=== PATIENT | female | born 1945 | race Caucasian/White ===

== ENCOUNTER 2017-09-06 11:05 | Emergency (ER) | payer MEDICARE ==
[2015-06-28 10:58] VITALS: Ht 167.6 cm; Wt 113.4 kg
[~2017-09-06] VITALS: Ht 167.6 cm; Wt 113.4 kg
--- NOTE | 2017-09-06 11:25 | ER Report ---
History and Physical Time Seen By MD: 11:10 Hx. of Stated Complaint: PATIENT FELL AT [facility] HITTING HER HEAD AFTER SEEING THE DOCTOR HPI/DUANE CHIEF COMPLAINT: Head injury HISTORY OF PRESENT ILLNESS: Patient is a 72-year-old female who presents the ED with complaint of a head injury that occurred about 10 minutes ago. She states that she had a visit with her primary care provider, Stephanie Trotter NP, and on her way out from the clinic she was scooting backwards in her chair and got caught on the end of the rug and her chair fell backwards with her and she hit the back of her head. She states that she has a lump on the back of her head but has not noted any bleeding. She believes that she did lose consciousness for a couple seconds. She denies any nausea or vomiting. She has not noted any vision changes, numbness, tingling. She has noted a slight headache. She does take Coumadin for atrial fibrillation. She states that she did not take her dose today. She also has not taken couple of her other medications today as of yet. She states that she has noted some slight neck pain as well. Patient denies any fever. She states that she did have some labwork completed today. REVIEW OF SYSTEMS: Constitutional: No fever, no chills. Eyes: No discharge. ENT: No sore throat. Cardiovascular: No chest pain, no palpitations. Respiratory: No cough, no shortness of breath. Gastrointestinal: No abdominal pain, no vomiting. Musculoskeletal: No back pain. Skin: No rashes. Neurological: See history of present illness. Allergies: Coded Allergies: MADAN Inhibitors (Unverified Allergy, Severe, OVERALL DRYNESS OF MOUTH, THROAT, SEVERE COUGH, 03/13/16) Msfewbb-Pdh-Hmf Reductase Inhibitor (Unverified Allergy, Severe, MENTAL STATUS CHANGES, FATIGUE, LETHARGY, 03/13/16) Penicillins (Verified Allergy, Intermediate, ITCHING, 03/13/16) duloxetine (Verified Allergy, Intermediate, Hallucinations and Chest Tightness, 07/28/17) isradipine (Verified Allergy, Intermediate, INCREASED BODY HEAT AND SWEATING, 03/13/16) Home Meds Active Scripts Gabapentin (GABAPENTIN) 300 Mg Capsule, 1-2 CAP PO BID, #180 CAPSULE 5 Refills Prov:STEPHANIE MISHRA DNP, BUSINESS PROCESS CONSULTANT-BC 08/25/17 Methimazole (METHIMAZOLE) 5 Mg Tablet, 1 TAB PO DAILY, #30 TAB 6 Refills Prov:STEPHANIE MISHRA DNP [facility] 08/02/17 Albuterol Sulfate 90 Mcg/Act (PROAIR HFA 90 MCG/ACT) 8.5 Gm Hfa.aer.ad, 1-2 PUFF IH 3-4XD, #1 INHALER 2 Refills Prov:STEPHANIE MISHRA DNP [facility] 07/20/17 Fluticasone Prop 50 Mcg Ns (FLONASE 50 MCG NS) 16 Gm [place].susp, 1 SPRAY NS BID for 10 Days, #1 BOT 0 Refills Prov:STEPHANIE MISHRA DNP [facility] 07/20/17 Guaifenesin (MUCINEX) 600 Mg Tablet.er, 1 TAB PO BID Y for Sinus Infection, #20 TAB 0 Refills Prov:STEPHANIE MISHRA DNP [facility] 07/20/17 Ezetimibe (ZETIA) 10 Mg Tablet, 10 MG PO QDAY, #90 TAB 3 Refills Prov:JC HERNANDES MD 07/20/17 Warfarin Sodium (COUMADIN) 5 Mg Tablet, 5 MG PO QDAY, #25 TAB 6 Refills TAKES 1/2 TABLET ON WEDNESDAY AND WEDNESDAY Prov:JC HERNANDES MD 03/12/17 Insulin Glargine,Hum.rec.anlog (LANTUS SOLOSTAR) 100 Unit/1 Ml Insuln.pen, 40 UNIT SQ QDAY, #1 BOX 4 Refills INJECT 23 UNITS IN THE MORNING AND 17 UNITS IN THE EVENING. Prov:JC HERNANDES MD 03/12/17 Metformin Hcl (METFORMIN HCL) 1,000 Mg Tablet, 1 TAB PO BID, #180 TAB 3 Refills Prov:JC HERNANDES MD 11/12/16 [place], Insulin Disposable (NOVOFINE) 1 Each Dis.needle, 1 EACH MC DIRECTED , #100 12 Refills [place] 2 pen tips daily with Lantus Novofine 30G needles Prov:JC HERNANDES MD 11/02/16 Furosemide (FUROSEMIDE) 40 Mg Tablet, 1 TAB PO BID, #180 TAB 2 Refills Prov:JC HERNANDES MD 10/08/16 Diltiazem Hcl (DILTIAZEM 24HR CD) 240 Mg Cap.er.24h, 1 CAP PO BID, #180 CAP 4 Refills Prov:JC HERNANDES MD 07/07/16 Losartan Potassium (LOSARTAN POTASSIUM) 50 Mg Tablet, 1 TAB PO QDAY, #90 TAB 4 Refills Prov:JC HERNANDES MD 06/05/16 Blood Sugar Diagnostic (ACCU-CHEK JOHNNY PLUS) 1 Each Strip, 1 EACH MC QDAY, # 100 STRIP 3 Refills use once a day to test blood sugar Prov:JC HERNANDES MD 05/12/16 Blood Sugar Diagnostic (ACCU-CHEK JOHNNY PLUS) 1 Each Strip, 1 EACH MC QDAY, #50 STRIP 5 Refills Prov:JC HERNANDES MD 05/12/16 NYSTATIN 603684 UNT/ML Topical Cream (NYSTATIN 324012 UNT/ML Topical Cream) 15 Gm Cream..g., 15 GM TP BID, #30 G 2 Refills Prov:JC HERNANDES MD 03/11/16 Reported Medications Mu-Vits-Min Th/Lycopene/Lutein (CENTRUM SILVER TABLET) 1 Each Tablet, 1 TAB PO QDAY 07/02/17 Magnesium Oxide (MAGNESIUM) 250 Mg Tablet, 1 TAB PO QHS 05/02/15 Cholecalciferol (Vitamin D3) (VITAMIN D) 2,000 Unit Capsule, 2000 UNIT PO QDAY, CAPSULE 05/08/14 Discontinued Scripts Duloxetine Hcl (CYMBALTA) 60 Mg Capsule.dr, 1 CAP PO QDAY, #90 CAP 0 Refills Prov:TSEPHANIE MISHRA DNP, FNP-ADEEL 07/26/17 Sulfamethoxazole/Trimet 800-160 Mg Tab (BACTRIM DS TABLET) 1 Each Tablet, 1 TAB PO Q12H for 7 Days, #14 TAB 0 Refills Prov:STEPHANIE MISHRA DNP, FNP-ADEEL 07/20/17 Guaifenesin/Codeine Phosphate (Codeine-Guaifen 10-100 mg/5 ml) 120 Ml Liquid, 1- 2 TSP PO Q6H Y for COUGH, #120 ML 0 Refills Prov:STEPHANIE MISHRA DNP, FNP-ADEEL 07/13/17 Reviewed Nurses Notes: Yes Old Medical Records Reviewed: Yes Hx Smoking: No Smoking Status: Never Smoker Exposure to Second Hand Smoke?: No Hx Substance Use Disorder: No Hx Alcohol Use: Yes Constitutional Vital Sign - Last 24 Hours 09/06/17 09/06/17 09/06/17 09/06/17 11:11 11:11 12:00 12:05 Temp 98.9 Pulse 102 105 103 106 Resp 18 B/P (MAP) 146/100 (115) 146/100 132/110 (117) Pulse Ox 96 93 96 94 O2 Delivery Nasal Cannula Physical Exam General Appearance: The patient is alert, has no immediate need for airway protection and no signs of toxicity. Patient appears to be in no acute distress. Eyes: Pupils equal and round no pallor or injection. EOMs are full bilaterally. ENT, Mouth: Mucous membranes are moist. Respiratory: There are no retractions, lungs are clear to auscultation. Cardiovascular: Regular rate and rhythm. Gastrointestinal: Abdomen is soft and non tender, no masses, bowel sounds normal. Neurological: Cranial nerves II-12 intact. Normal Romberg. Normal finger to nose test bilaterally. Skin: There is a small 2 cm diameter scalp hematoma noted on the occipital scalp. No bleeding or laceration present. Musculoskeletal: Neck is supple non tender. Extremities are nontender, nonswollen and have full range of motion. DIFFERENTIAL DIAGNOSIS: After history and physical exam differential diagnosis was considered for head injury including but not limited to concussion, skull fracture, intraparenchymal contusion, subarachnoid, subdural and epidural hematoma. Medical Decision Making EKG/Imaging Imaging CT Head and C-Spine: IMPRESSION: 1. The head shows senescent changes without acute abnormality. 2. No acute osseous or acute alignment abnormality of the cervical spine. Mild degenerative changes. 3. Left thyroid hypodense lesion measuring 3.5 cm. A follow-up ultrasound can further evaluate. Report Dictated By: Rashid Dean at 09/06/2017 12:01 PM Report E-Signed By: Rashid Dean at 09/06/2017 12:10 PM ED Course/Re-evaluation ED Course Will obtain CT of the head and neck. She did have her INR checked today and it was at 2.19. 09/06/2017 12:20:16 pm - discussed CT of the head and C-spine results. There was no acute intracranial abnormality or fracture noted on his C-spine. Likely patient has neck strain with her scalp hematoma. Did discuss with her the finding of a thyroid lesion which should be further evaluated by ultrasound through her primary care provider. Decision to Disposition Date: Sep 06, 2017 Decision to Disposition Time: 12:20 Depart Departure Latest Vital Signs Vital Signs Date Time Temp Pulse Resp B/P (MAP) Pulse Ox O2 Delivery O2 Flow Rate FiO2 09/06/17 12:05 106 94 09/06/17 12:00 132/110 (117) 09/06/17 11:11 98.9 18 Nasal Cannula Impression: Primary Impression: Head injury Additional Impressions: Neck strain Thyroid nodule Condition: Improved Disposition: HOME OR SELF-CARE Referrals: STEPHANIE MISHRA DNP, BUSINESS PROCESS CONSULTANT-BC (PCP) Patient Instructions: Acute Neck Pain (ED), Head Injury (ED), Thyroid Nodules ( ED) Additional Instructions: Stay well-hydrated. Follow-up with primary care provider in 2-3 days regarding her injuries and the thyroid nodule noted on CT. If having any worsening or concerning symptoms may return to the emergency department. Problem Qualifiers Primary Impression: Head injury Encounter type: initial encounter Qualified Codes: S09.90XA - Unspecified injury of head, initial encounter Additional Impressions: Neck strain Encounter type: initial encounter Qualified Codes: S16.1XXA - Strain of muscle, fascia and tendon at neck level, initial encounter CAPO [place] PA-C Sep 06, 2017 11:25
[2017-09-06] MEDS ORDERED: ACETAMINOPHEN 325 MG TAB PO ONE (11:55)
--- NOTE | 2017-09-06 12:14 | RADIOLOGY IMAGING REPORT ---
FACILITY: [facility] PATIENT NAME: Dahiana Ulloa : 1945 MR: [id number] V: [id number] EXAM DATE: ORDERING PHYSICIAN: [place]O [place] TECHNOLOGIST: [place] [facility] [place] : 1945 Visit/Account:[id number] Date of Sevice: 09/06/2017 CT Head without contrast and CT Cervical spine: Indication: Head and neck pain after fall. Comparison: None available Technique: CT head: Axial CT images were obtained through the brain from the skull base to the verte x without administration of IV contrast. Reformatted coronal and sagittal images were also obtained. Technique: CT cervical spine: Axial CT imaging of the cervical spine was performed. 2-D sagittal and coronal CT reformats were also obtained. One of the following dose optimization techniques was utilized in the performance of this exam: Autom ated exposure control; adjustment of the mA and/or kV according to the patient's size; or use of an i terative reconstruction technique. Specific details can be referenced in the facility's radiology C T exam operational policy. FINDINGS: CT head: No intracranial bleed, midline shift, mass effect, extra axial fluid collection or hydrocephalus. Age -related cerebral atrophy. Periventricular white matter ischemic changes consistent small vessel dise ase. Mild bilateral internal carotid artery calcifications and left vertebral artery desiccation. Bon y structures show no fractures or lesions. Sinuses and mastoids visualized are clear. CT cervical spine: The vertebral bodies are aligned. No fracture or facet dislocation. No bony lesions. There is mild de generative change including disc space narrowing, endplate changes, osteophytes and facet arthropathy . No bony canal stenosis. Mild multilevel neural foramina narrowing. Prevertebral soft tissues are un remarkable. The left thyroid shows a 3.5 x 3.1 cm hypodense lesion in the soft tissues otherwise unre markable. Lung apices are clear. IMPRESSION: 1. The head shows senescent changes without acute abnormality. 2. No acute osseous or acute alignment abnormality of the cervical spine. Mild degenerative changes. 3. Left thyroid hypodense lesion measuring 3.5 cm. A follow-up ultrasound can further evaluate. Report Dictated By: Rashid Dean at 09/06/2017 12:01 PM Report E-Signed By: Rashid Dean at 09/06/2017 12:10 PM WSN:[id number]
--- NOTE | 2017-09-06 12:14 | RADIOLOGY IMAGING REPORT ---
FACILITY: [facility] PATIENT NAME: Dahiana Ulloa : 1945 MR: [id number] V: [id number] EXAM DATE: ORDERING PHYSICIAN: [place]CHN[place] [facility] [place] Dah[place] U[place] : 1945 Visit/Account:[id number] Date of Sevice: 09/06/2017 CT Head without contrast and CT Cervical spine: Indication: Head and neck pain after fall. Comparison: None available Technique: CT head: Axial CT images were obtained through the brain from the skull base to the verte x without administration of IV contrast. Reformatted coronal and sagittal images were also obtained. Technique: CT cervical spine: Axial CT imaging of the cervical spine was performed. 2-D sagittal and coronal CT reformats were also obtained. One of the following dose optimization techniques was utilized in the performance of this exam: Autom ated exposure control; adjustment of the mA and/or kV according to the patient's size; or use of an i terative reconstruction technique. Specific details can be referenced in the facility's radiology C T exam operational policy. FINDINGS: CT head: No intracranial bleed, midline shift, mass effect, extra axial fluid collection or hydrocephalus. Age -related cerebral atrophy. Periventricular white matter ischemic changes consistent small vessel dise ase. Mild bilateral internal carotid artery calcifications and left vertebral artery desiccation. Bon y structures show no fractures or lesions. Sinuses and mastoids visualized are clear. CT cervical spine: The vertebral bodies are aligned. No fracture or facet dislocation. No bony lesions. There is mild de generative change including disc space narrowing, endplate changes, osteophytes and facet arthropathy . No bony canal stenosis. Mild multilevel neural foramina narrowing. Prevertebral soft tissues are un remarkable. The left thyroid shows a 3.5 x 3.1 cm hypodense lesion in the soft tissues otherwise unre markable. Lung apices are clear. IMPRESSION: 1. The head shows senescent changes without acute abnormality. 2. No acute osseous or acute alignment abnormality of the cervical spine. Mild degenerative changes. 3. Left thyroid hypodense lesion measuring 3.5 cm. A follow-up ultrasound can further evaluate. Report Dictated By: Rashid Dean at 09/06/2017 12:01 PM Report E-Signed By: Rashid Dean at 09/06/2017 12:10 PM WSN:[id number]
[2017-09-06 12:27] VITALS: BP 132/91
== END 2017-09-06 12:30 | disposition home or self-care (01) ==
LOC: ER 11:17
DX: S16.1XXA Strain of muscle, fascia and tendon at neck level, initial encounter (principal); S09.90XA Unspecified injury of head, initial encounter; E04.1 Nontoxic single thyroid nodule; W07.XXXA Fall from chair, initial encounter; Y92.238 Other place in hospital as the place of occurrence of the external cause
CPT/HCPCS: 70450; 72125; 99283; A9270

== ENCOUNTER → 2017-09-06 | Outpatient (CLI) | payer MEDICARE ==
[2015-06-28 10:58] VITALS: BMI 41.0
[~2017-09-06] MED LIST: ACET-1966 PO; ALBU8.5H IH; ASPI-715 PO; AZIT-17 PO; BLOO-1503 MC; CALC-649 PO; CEFU500T50 PO; CHOL200021 PO; CIPHCO EACH EAR; DILT240C4 PO; DILT240T PO; DIPH0.5D12 IM; DOCU-202 PO; DOCU100T13 PO; DULO60CA56 PO; ERGO500029 PO; EXEN2PEN SC; EZET10TA41 PO; FLUT16SP19 NS; FURO-47 PO; GABA-503 PO; GABA-549 PO; GINK120C PO; GLY25 PO; GOLYTE PO; GUAI120L3 PO; GUAI600T57 PO; HYDR25SU10 PR; INSU100I30 SQ; LANI SUBQ; LEVO750T44 PO; LIDO10VI16 INTRA-ART; LOSA-50 PO; LOSA50TA72 PO; MAGN250T34 PO; METF-420 PO; METH-284 PO; METH4TAB66 PO; METH5TAB87 PO; METO25TA23 PO; MULT-27 PO; MUPI15CR10 TP; NEED-396 MC; NYST15CR32 TP; OXYC-373 PO; PAN40 PO; PER PO; PRA20 PO; PRED20TA6 PO; SERT25TA90 PO; SILV20CR2 TP; SPIR25TA78 PO; SULF-198 PO; TRI40I INTRA-ART; VIT-22 PO; WARF-1 PO; WARF-18 PO; WARF2.5T11 PO
[2017-09-06 09:21] LABS: INR 2.19
== END ==
LOC: LAB 08:42
PROVIDERS: ATTEND Pharmacist Pharmacotherapy
DX: I48.91 Unspecified atrial fibrillation (principal)
CPT/HCPCS: 36415; 85610

== ENCOUNTER → 2017-09-10 | Outpatient (CLI) | payer MEDICARE ==
[2015-06-28 10:58] VITALS: BMI 41.0
--- NOTE | 2017-09-10 15:17 | RADIOLOGY IMAGING REPORT ---
FACILITY: [facility] [place] PATIENT NAME: Dahiana Ulloa : 1945 MR: [id number] V: [id number] EXAM DATE: ORDERING PHYSICIAN: STEPHANIE MISHRA TECHNOLOGIST: Location: [facility] Patient: Dahiana Ulloa : 1945 Visit/Account:[id number] Date of Sevice: 09/10/2017 THYROID HISTORY: Left thyroid hypodense lesion measuring 3.5 cm COMPARISON: CT cervical spine September 06, 2017 FINDINGS: SIZE: Normal. Right lobe: 4.1 x 1.6 x 1.2 cm Left lobe: 5.1 x 3.8 x 3.7 cm Isthmus: 4 mm PARENCHYMA: Heterogeneous NODULES: Right lobe: * There is 1.2 cm spongiform nodule in the mid right lobe. Several other subcentimeter hypoechoic n odules and cysts identified in the right lobe Left lobe: * There is a there is a large complex nodule, seen also left lobe the thyroid gland. Isthmus: * None discrete. VASCULARITY: Within normal limits. ADDITIONAL FINDINGS: None. IMPRESSION: There is a large complex nodule comp seen most of the left lobe the thyroid gland for which ultrasoun d-guided fine-needle aspiration is recommended REFERENCE: 2015 [place] Thy[employer] Management Guidelines for Adult Patients with Thyroid Nodules and D ifferentiated Thyroid Cancer: The [place] Thyroid [employer] Guidelines Task Force on Thyroid Nodul es and Differentiated Thyroid Cancer. SONOGRAPHIC PATTERNS: * Benign: Purely cystic nodules (no solid component); estimated risk of malignancy <1 percent; no bi opsy recommended. * Very Low Suspicion: Spongiform or partially cystic nodules without any of the sonographic features described in low, intermediate, or high suspicion patterns; estimated risk of malignancy <3 percent; consider FNA at > 2 cm (Observation without FNA is also a reasonable option). * Low Suspicion: Isoechoic or hyperechoic solid nodule, or partially cystic nodule with eccentric so lid areas, without microcalcification, irregular margin or ETE (extra-thyroidal extension), or taller than wide shape; estimated risk of malignancy 5-10 percent; recommend FNA at >1.5 cm. * Intermediate Suspicion: Hypoechoic solid nodule with smooth margins without microcalcifications, E TE (extra-thyroidal extension), or taller than wide shape; estimated risk of malignancy 10-20 percent ; recommend FNA at > 1 cm. * High Suspicion: Solid hypoechoic nodule or solid hypoechoic component of a partially cystic nodule with one or more of the following features: irregular margins (infiltrative, microlobulated), microc alcifications, taller than wide shape, rim calcifications with small extrusive soft tissue component, evidence of ETE (extra-thyroidal extension); estimated risk of malignancy >70-90 percent; recommend FNA at > 1 cm. NOTES: * Although a sonographically suspicious subcentimeter thyroid nodule without evidence of extrathyroi ange extension or sonographically suspicious lymph nodes may be observed with close sonographic follow -up rather than pursuing immediate FNA, patient age and preference may modify decision-making. A > 50% interval increase in nodule volume and/or development of new suspicious sonographic features are felt to be a valid reasons for potential re-aspiration of a nodule previously shown to have benig n FNA cytology. Report Dictated By: Rosalia Stoddard MD at 09/10/2017 3:10 PM Report E-Signed By: Rosalia Stoddard MD at 09/10/2017 3:13 PM WSN:[id number]
--- NOTE | 2017-09-12 20:21 | RADIOLOGY IMAGING REPORT ---
FACILITY: [facility] [place] PATIENT NAME: RAGHAVENDRA JACOBSON : [id number] MR: [id number] V: [id number] EXAM DATE: ORDERING PHYSICIAN: STEPHANIE MISHRA TECHNOLOGIST: Starr Reich EXAMINATION:TWO-DIMENSIONAL ECHOCARDIOGRAPH REASON:EDEMA. 2D Measurements (normal values in centimeters) LV endLV endRV endVent.LV PostAorticLeftPercent DiastolicSystolicDiastolicSeptumWallRootAtriumShortening (3.5-5.7)(0.9-2.6)(0.6-1.1)(0.6-1.1)(2.0-3.7)(1.9-4.0)(25-35%) [id number]% STROKE VOLUME: 36 mL ESTIMATED EJECTION FRACTION:53% PARASTERNAL LONG AXIS: The view was very technically difficult but overall left ventricular systolic function appears to be normal but the endocardium is not seen well. The right ventricle is enlarged and appears to contract normally. The left atrium is also enlarged. The patient appears to be in atrial fibrillation. No thrombi are noted but the left atrial appendage is not seen. PARASTERNAL SHORT AXIS: Overall left ventricular function again appears to be normal. No specific wall motion abnormalities were noted. The aortic valve is trileaflet in configuration probably but difficult to tell. Trace of aortic insufficiency is noted. APICAL FOUR AND TWO CHAMBER: Normal left ventricular ejection fraction. There is a moderate amount of mitral insufficiency noted. Also a mild to moderate amount of tricuspid insufficiency is noted. Left atrial volume is severely increased at 46 mL/m2. Right atrial volume is mildly increased at 30 mL/m2. The aortic valve area was measured at 1.5 cm2 with mean pressure gradient across the valve of 6 mmHg and a dimensionless index of 0.6. There is a trace of aortic insufficiency noted. TAPSE is measured at 1.6 and there is a prominent moderator band in the right ventricle. Tricuspid regurgitation V-max is measured at 2.69 m/sec. No wall motion abnormalities are noted. SUBCOSTAL VIEW: No pericardial effusion was noted. No atrial septal or ventricular septal defects were appreciated. OVERALL IMPRESSION: 1. Left ventricular ejection fraction is at the lower range of normal at 53%. We were unable to accurately assess the diastolic function as the patient is in atrial fibrillation with a controlled rate. No thrombi were noted in any of the chambers but the left atrial appendage was not seen. 2. Mild concentric left ventricular thickening but no evidence for any outflow tract obstruction. 3. Mild amount of right ventricular enlargement. Normal left ventricular size. Mild right atrial enlargement and severe left atrial enlargement. 4. Trileaflet aortic valve with mild aortic sclerosis but no stenosis. Valve area of 1.5 cm2 with mean pressure gradient across the valve of 6 mmHg and a dimensionless index of 0.6 and there is a trace of aortic insufficiency noted. 5. A trace of pulmonic insufficiency. 6. A mild to moderate amount of mitral insufficiency. 7. There is a mild to moderate amount of tricuspid insufficiency with estimated right ventricular systolic pressures at 37 mmHg which does include an estimated right atrial pressure of 8 mmHg. This indicates borderline right ventricular pressures and pulmonary hypertension. 8. In comparison with the echocardiograph done on 07/27/16, the only appreciable change is the right ventricular pressures have decreased from 54 mmHg to 37 mmHg. The tricuspid regurgitation and mitral regurgitation have increased mildly. Dictated by: Jese Gambino M.D. on 09/10/2017 at 17:00 Transcribed by: DEAN on 09/10/2017 at 18:28 Approved by: Jese Gambino M.D. on 09/12/2017 at 20:20 [facility]
== END ==
LOC: RAD 09-07 01:38 → US 03:44
PROVIDERS: ATTEND Nurse Practitioner Primary Care
DX: I48.91 Unspecified atrial fibrillation (principal); I51.7 Cardiomegaly; I27.20 Pulmonary hypertension, unspecified; I37.1 Nonrheumatic pulmonary valve insufficiency; I34.0 Nonrheumatic mitral (valve) insufficiency; I07.1 Rheumatic tricuspid insufficiency; E04.1 Nontoxic single thyroid nodule
CPT/HCPCS: 76536; 93306

== ENCOUNTER → 2017-09-30 | Outpatient (CLI) | payer MEDICARE ==
[2015-06-28 10:58] VITALS: BMI 41.0
== END ==
LOC: LAB 10:24
PROVIDERS: ATTEND Nurse Practitioner Primary Care
DX: E11.9 Type 2 diabetes mellitus without complications (principal); E05.90 Thyrotoxicosis, unspecified without thyrotoxic crisis or storm
CPT/HCPCS: 36415; 82040; 82247; 82310; 82374; 82435; 82565; 82947; 83036; 84075; 84132; 84155; 84295; 84439; 84443; 84450; 84460; 84520

== ENCOUNTER → 2018-02-10 | Outpatient (CLI) | payer MEDICARE, MEDICAID ==
[2015-06-28 10:58] VITALS: BMI 41.0
[~2018-02-10] MED LIST changes: +FEXO-67 PO; +METF-421 PO; +OXYGENHOME INH; +WALK1EAC MC; -WARF-18 PO; +WARF5TAB23 PO
[2018-02-10 14:16] LABS: PLATELET COUNT, AUTOMATED 278 K/uL (150-450)
== END ==
LOC: LAB 13:58
PROVIDERS: ATTEND Family Medicine
DX: E05.90 Thyrotoxicosis, unspecified without thyrotoxic crisis or storm (principal); E11.9 Type 2 diabetes mellitus without complications
CPT/HCPCS: 82040; 82247; 82310; 82374; 82435; 82565; 82947; 84075; 84132; 84155; 84295; 84439; 84443; 84450; 84460; 84481; 84520; 85025

== ENCOUNTER 2018-02-15 12:57 | Outpatient (RCR) | payer MEDICARE, MEDICAID ==
[2015-06-28 10:58] VITALS: BMI 41.0
--- NOTE | 2018-02-15 14:13 | PT INITIAL EVALUATION ---
MEDICAL DIAGNOSIS: R42 Dizziness TREATMENT DIAGNOSIS: Same, L posterior canal BPPV DATE OF ONSET: 09/06/17 SUBJECTIVE: Dahiana Ulloa presents to PT for L spinning vertigo when she lays on her left side in bed. She struck the back of her head September 06, 2017 when she fell at [facility] and has had spinning vertigo since then. She would like to focus on HEP and not do much appointment therapy. REHAB PROBLEM LIST: Decreased Balance Decreased Mobility Decreased Gait PREVIOUS MEDICAL HISTORY: A. fib, DM, peripheral neuropathy, 3 l/min O2, HTN, cardiac cath. 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 OBJECTIVE: Posture: Heels 8" apart, steady, head midline. ROM: Cervical AROM WNL. Special Tests: Positive L Hallpike for upbeating torsional nystagmus, positive VOR x1 for saccades. Mobility: Independent bed mobility, sit<>fire hazard inspector one attempt with UE use. Gait: Rollator, feet clear the floor but don't pass each other, heels close together. Dahiana turns with discordant steps. Balance: Double limb support. Tinetti Gait and Balance 17, a high fall risk. ASSESSMENT: Dahiana Ulloa presents with L posterior canal BPPV affecting L side lie positions. She did well with canalith repositioning and is started on eye tracking HEP. Short Term Goals 2 weeks: Dahiana lays on her L side in bed without vertigo. Patient's Goals: Get rid on vertigo and minimize visits to clinic. PLAN: Patient to be seen for Neuromuscular Re-ed, Gait Trg/Balance Trg, Home Exercise Program 1-2 visits for 2 Weeks Thank you for this referral. If you have any questions, comments, or concerns about this report or plan, please contact me at . NITHYAD
--- NOTE | 2018-02-21 14:16 | PT PLAN OF CARE ---
Physician: Dr. Antionette Mak Patient is being seen: once Therapist: Monica Michelle, PT Medical Diagnosis: R42 Dizziness Treatment Diagnosis: Same, L posterior canal BPPV Date of Onset: 09/06/17 Date of Initial Evaluation: 02/15/18 Date patient was last seen: 02/14 Number of treatments: 1 Number of cancellations/No shows: 1 INTERVENTIONS: Neuromuscular Re-ed. Home Exercise Program GOALS: 2 weeks: Dahiana lays on her L side in bed without vertigo. met PATIENT'S GOAL: Get rid on vertigo and minimize visits to clinic. both met Patient Compliance: Good Prognosis: Excellent Reasons for discontinuing therapy: S: Dahiana cancelled her PT visit today as she's no longer dizzy. She was adamant on 02/15/18 that she minimize her visits to PT. O: Dahiana did well with Vijay's maneuver on 02/15/18. A/P: Dahiana's discharged herself from PT. I'll close her PT case. Thank you. KELLY
== END 2018-02-21 15:16 | disposition home or self-care (01) ==
LOC: PT 12:57
PROVIDERS: ATTEND Family Medicine
DX: H81.12 Benign paroxysmal vertigo, left ear (principal); I48.91 Unspecified atrial fibrillation; I10 Essential (primary) hypertension; G62.9 Polyneuropathy, unspecified; Z99.81 Dependence on supplemental oxygen; Z95.5 Presence of coronary angioplasty implant and graft
CPT/HCPCS: 97162

== ENCOUNTER → 2018-05-31 | Outpatient (CLI) | payer MEDICARE, MEDICAID ==
[2015-06-28 10:58] VITALS: BMI 41.0
[~2018-05-31] MED LIST changes: -LOSA50TA72 PO; +LOSA50TA74 PO; +MELA10CA PO; -METF-421 PO; +METF-452 PO; +SPIR25TA80 PO
[2018-05-31 17:08] LABS: PLATELET COUNT, AUTOMATED 263 K/uL (150-450)
== END ==
LOC: LAB 16:49
PROVIDERS: ATTEND Family Medicine
DX: E11.9 Type 2 diabetes mellitus without complications (principal); K92.1 Melena; E05.90 Thyrotoxicosis, unspecified without thyrotoxic crisis or storm
CPT/HCPCS: 36415; 82040; 82247; 82310; 82374; 82435; 82565; 82947; 84075; 84132; 84155; 84295; 84439; 84443; 84450; 84460; 84481; 84520; 85025

== ENCOUNTER → 2018-06-01 | Outpatient (CLI) | payer MEDICARE, MEDICAID ==
[2015-06-28 10:58] VITALS: BMI 41.0
--- NOTE | 2018-06-02 12:16 | RT HOLTER TEST ---
[place] [facility] [place] NAME: RAGHAVENDRA JACOBSON : [id number] MR: [id number] V: [id number] EXAM DATE: ORDERING PHYSICIAN: NETTE ROLDAN TECHNOLOGIST: SHYAM Farrar-up date: 2018-06-01 09:47:00 Duration: 23:55:00 Test Indications: PERSISTENT ATRIAL FIBRILLATION Medications: N/A [id number] QRS complexes 49 Ventricular ectopics which represent <1 % of total QRS comp. * Supraventricular ectopics which represent % of total QRS comp. * Paced QRS complexes which represent % of total QRS comp. VENTRICULAR ECTOPY 41 Isolated 0 Bigeminal Cycles 4 Couplets 0 Runs 0 Beats in Runs * Beats LONGEST at * BPM at :: -- * Beats FASTEST at * BPM at :: -- SUPRAVENTRICULAR ECTOPY * Isolated * Couplets * Runs * Beats in Runs * Beats LONGEST at * BPM at :: -- * Beats FASTEST at * BPM at :: -- HEART RATES 51 MIN at 01:49:27 2018-06-02 92 AVG 163 MAX at 13:11:58 2018-06-01 LONGEST RR 1.944 secs at 01:33:17 2018-06-02 S-T LEVELS Channel 1 -12.800 mm MIN at 09:47:00 2018-06-01 -12.800 mm MAX at 09:47:00 2018-06-01 Channel 2 -12.800 mm MIN at 09:47:00 2018-06-0112.800 mm MAX at 09:47:00 2018-06-01 Channel 3 -12.800 mm MIN at 09:47:00 2018-06-0112.800 mm MAX at 09:47:00 2018-06-01 Atrial fibrillation Premature ventricular complexes Confirmed by ARCADIO BERMEO ([id number]) on 06/02/2018 12:16:32 PM Referred By: Overread By: ARCADIO BERMEO
== END ==
LOC: RESP 01:14
PROVIDERS: ATTEND Internal Medicine Cardiovascular Disease
DX: I48.1 Persistent atrial fibrillation (principal)
CPT/HCPCS: 93225; 93226

== ENCOUNTER 2018-10-24 21:45 | Emergency (ER) | payer MEDICARE, MEDICAID ==
[2015-06-28 10:58] VITALS: Wt 117.9 kg
--- NOTE | 2018-10-24 21:51 | ER Report ---
History and Physical Time Seen By MD: 21:51 HPI/ROS CHIEF COMPLAINT: Nosebleed HISTORY OF PRESENT ILLNESS: This is a 73-year-old female. Having nosebleeds on and off for the last few days. Current nosebleed is lasted for hours. Left nasal passage. She is on blood thinners, warfarin, INR has been therapeutic. Denies any other bleeding. She does wear oxygen area did she is using a humidifier at home. No nasal injuries. She is taking her regular medicines including blood pressure medicines as indicated. Allergies: Coded Allergies: JOB Inhibitors (Unverified Allergy, Severe, OVERALL DRYNESS OF MOUTH, THROAT, SEVERE COUGH, 03/13/16) Wucywah-Vhr-Olt Reductase Inhibitor (Unverified Allergy, Severe, MENTAL STATUS CHANGES, FATIGUE, LETHARGY, 03/13/16) Penicillins (Verified Allergy, Intermediate, ITCHING, 03/13/16) duloxetine (Verified Allergy, Intermediate, Hallucinations and Chest Tightness, 07/28/17) isradipine (Verified Allergy, Intermediate, INCREASED BODY HEAT AND SWEATING, 03/13/16) Home Meds Active Scripts Diltiazem Hcl (DILTIAZEM 24HR CD) 240 Mg Cap.er.24h, 1 CAP PO BID, #180 CAP 4 Refills Prov:ABUNDIO [place] MD 10/17/18 Ezetimibe (ZETIA) 10 Mg Tablet, 1 TAB PO QDAY for 90 Days, #90 TAB 4 Refills Prov:ABUNDIO NY MD 08/18/18 Insulin Glargine 100 Un/Ml Pen (LANTUS SOLOSTAR PEN) 100 Unit/1 Ml Insuln.pen, 40 UNIT SQ QDAY for 30 Days, #1 BOX 12 Refills INJECT 23 UNITS IN THE MORNING AND 17 UNITS IN THE EVENING. Prov:ABUNDIO NY MD 06/06/18 Methimazole (METHIMAZOLE) 10 Mg Tablet, 1 TAB PO QDAY for 90 Days, #90 TAB 4 Refills Prov:ABUNDIO NY MD 05/03/18 Furosemide (FUROSEMIDE) 40 Mg Tablet, 1 TAB PO BID for 90 Days, #180 TAB 4 Refills Prov:ABUNDIO NY MD 03/07/18 Warfarin Sodium (COUMADIN) 5 Mg Tablet, 5 MG PO QDAY for 90 Days, #90 TAB 4 Refills as directed Prov:ABUNDIO [place] MD 12/22/17 [place], Insulin Disposable (NOVOFINE) 1 Each Dis.needle, 1 EACH MC DIRECTED, #100 12 Refills [place] 2 pen tips daily with Lantus Novofine 30G needles Prov:ABUNDIO NY MD 12/03/17 Metformin Hcl (METFORMIN HCL) 1,000 Mg Tablet, 1 TAB PO BID, #180 TAB 4 Refills Prov:ABUNDIO NY MD 12/03/17 Walker (ULTRA-LIGHT ROLLATOR) 1 Each Each, EACH MC, #1 Rollator, length of need 99 mos., dx: chronic left hip pain/left hip osteoarthritis, bilateral knee osteoarthritis. Prov:STEPHANIE MISHRA DNP, PROCESS MANAGER-BC 10/05/17 Losartan Potassium (LOSARTAN POTASSIUM) 50 Mg Tablet, 1 TAB PO QDAY, #90 TAB 4 Refills Prov:JC HERNANDES MD 10/01/17 Fluticasone Prop 50 Mcg Ns (FLONASE 50 MCG NS) 16 Gm [place].susp, 2 SPRAY NS QDAY for 10 Days, #1 BOT 5 Refills Prov:STEPHANIE MISHRA DNP, PROCESS MANAGER-BC 09/15/17 Blood Sugar Diagnostic (ACCU-CHEK JOHNNY PLUS) 1 Each Strip, 1 EACH MC QDAY, #100 STRIP 3 Refills use once a day to test blood sugar Prov:JC HERNANDES MD 05/12/16 Blood Sugar Diagnostic (ACCU-CHEK JOHNNY PLUS) 1 Each Strip, 1 EACH MC QDAY, #50 STRIP 5 Refills Prov:JC HERNANDES MD 05/12/16 Reported Medications Melatonin (MELATONIN) 10 Mg Capsule, 10 MG PO, CAPSULE 03/10/18 Oxygen (OXYGEN) Inha, 3-4 L INH, L 11/16/17 Mu-Vits-Min Th/Lycopene/Lutein (CENTRUM SILVER TABLET) 1 Each Tablet, 1 TAB PO QDAY 07/02/17 Reviewed Nurses Notes: Yes Hx Smoking: No Smoking Status: Never Smoker Exposure to Second Hand Smoke?: No Hx Substance Use Disorder: No Hx Alcohol Use: Yes Constitutional Vital Sign - Last 24 Hours 10/24/18 21:47 Temp 98.2 Pulse 91 Resp 20 B/P (MAP) 144/92 Pulse Ox 92 O2 Delivery Nasal Cannula Physical Exam General Appearance: Alert, no distress. Eyes: Pupils equal and round no pallor or injection. ENT: Mucous membranes are moist. Oral mucosa is normal in appearance. Posterior oropharynx has no erythema or exudates. Left nasal passage shows anterior septum with a small area that is been bleeding. Skin: Warm and dry, no bruising. Cardiovascular: Normal peripheral perfusion. She does have lower extremity edema. DIFFERENTIAL DIAGNOSIS: After history and physical exam differential diagnosis was considered for epistaxis left nasal passage anterior septum Medical Decision Making Data Points Result Diagram: 10/24/185 Laboratory Hematology Test 10/24/18 22:25 Red Blood Count 5.30 M/uL (4.17-5.56) Mean Corpuscular Volume 85.2 fL (80.0-96.0) Mean Corpuscular Hemoglobin 27.9 pg (26.0-33.0) Mean Corpuscular Hemoglobin Concent 32.8 g/dL (32.0-36.0) Red Cell Distribution Width 15.3 % (11.5-14.5) Mean Platelet Volume 8.3 fL (7.2-11.1) Neutrophils (%) (Auto) 71.8 % (39.4-72.5) Lymphocytes (%) (Auto) 13.0 % (17.6-49.6) Monocytes (%) (Auto) 11.9 % (4.1-12.4) Eosinophils (%) (Auto) 2.9 % (0.4-6.7) Basophils (%) (Auto) 0.4 % (0.3-1.4) Nucleated RBC Relative Count (auto) 0.1 /100WBC Neutrophils # (Auto) 6.9 K/uL (2.0-7.4) Lymphocytes # (Auto) 1.2 K/uL (1.3-3.6) Monocytes # (Auto) 1.1 K/uL (0.3-1.0) Eosinophils # (Auto) 0.3 K/uL (0.0-0.5) Basophils # (Auto) 0.0 K/uL (0.0-0.1) Nucleated RBC Absolute Count (auto) 0.01 K/uL Prothrombin Time 31.6 seconds (12.0-14.4) Prothromb Time International Ratio 2.98 Chemistry Test 10/24/18 22:25 White Blood Count 9.6 k/uL (4.5-11.0) Red Blood Count 5.30 M/uL (4.17-5.56) Hemoglobin 14.8 g/dL (12.0-16.0) Hematocrit 45.1 % (34.0-47.0) Mean Corpuscular Volume 85.2 fL (80.0-96.0) Mean Corpuscular Hemoglobin 27.9 pg (26.0-33.0) Mean Corpuscular Hemoglobin Concent 32.8 g/dL (32.0-36.0) Red Cell Distribution Width 15.3 % (11.5-14.5) Platelet Count 258 K/uL (150-450) Mean Platelet Volume 8.3 fL (7.2-11.1) Neutrophils (%) (Auto) 71.8 % (39.4-72.5) Lymphocytes (%) (Auto) 13.0 % (17.6-49.6) Monocytes (%) (Auto) 11.9 % (4.1-12.4) Eosinophils (%) (Auto) 2.9 % (0.4-6.7) Basophils (%) (Auto) 0.4 % (0.3-1.4) Nucleated RBC Relative Count (auto) 0.1 /100WBC Neutrophils # (Auto) 6.9 K/uL (2.0-7.4) Lymphocytes # (Auto) 1.2 K/uL (1.3-3.6) Monocytes # (Auto) 1.1 K/uL (0.3-1.0) Eosinophils # (Auto) 0.3 K/uL (0.0-0.5) Basophils # (Auto) 0.0 K/uL (0.0-0.1) Nucleated RBC Absolute Count (auto) 0.01 K/uL Prothrombin Time 31.6 seconds (12.0-14.4) Prothromb Time International Ratio 2.98 Coagulation Test 10/24/18 22:25 Prothrombin Time 31.6 seconds Prothromb Time International Ratio 2.98 ED Course/Re-evaluation ED Course Procedure: Epistaxis control. Initially treated with compression with a nasal clamp. The patient had continued bleeding. We then used Neosynephrine nasal spray to try and acheive some vasoconstriction to slow or stop the bleeding. We also used some atomized 1% lidocaine with epinephrine, 0.5cc in the nasal passage. Also little bit of topical Tranexemic acid, atomized, followed by cotton soaked with this and left in the nasal passage with a clamp. The nose was re-clamped and we waited to re- evaluate. Re-evaluation revealed slowing of the bleeding. The was identified and was on the anterior nasal septum. Cautery was attempted with silver nitrate. Repeated the packing with the Tranexemic acid. Following the procedure the patient was re-examined and the bleeding was well controlled. The patient tolerated the procedure well. The procedure was performed by myself. Patient did ask about her edema we did provide some Job wraps for compression. She will be following up with her primary care provider to discuss this further. She has an appointment with ENT coming up this week as well. Decision to Disposition Date: Oct 24, 2018 Decision to Disposition Time: 23:45 Depart Departure Latest Vital Signs Vital Signs Date Time Temp Pulse Resp B/P (MAP) Pulse Ox O2 Delivery O2 Flow Rate FiO2 10/24/18 21:47 98.2 91 20 144/92 92 Nasal Cannula Impression: Primary Impression: Epistaxis Condition: Improved Disposition: HOME OR SELF-CARE Referrals: ABUNDIO NY MD (PCP) Patient Instructions: Nosebleed (ED) Additional Instructions: No rubbing or blowing the nose. Keep your appointment with Dr. Malhotra this week as planned. ELIZABETH HASTINGS MD Oct 24, 2018 21:52
[2018-10-24] MEDS ORDERED: ENT KIT ONE (21:57)
[2018-10-24] MEDS ORDERED: TRANEXAMIC AC 1000 MG/10ML SDV ONE (22:00)
[2018-10-24] MEDS ORDERED: SILVER NITRATE SWABS 10 PKG TP ONE (22:19)
[2018-10-24 22:34] LABS: PLATELET COUNT, AUTOMATED 258 K/uL (150-450)
[2018-10-24 22:40] LABS: INR 2.98
[2018-10-24 23:30] VITALS: BP 126/22
[2018-10-25] MEDS ORDERED: TRANEXAMIC AC 1000 MG/10ML SDV ONE (04:04)
[2018-10-25] MEDS ORDERED: LOSA50TA80 PO (09:33)
== END 2018-10-24 23:58 | disposition home or self-care (01) ==
LOC: ER 21:53
DX: R04.0 Epistaxis (principal)
CPT/HCPCS: 36415; 85025; 85610; 99282

== ENCOUNTER → 2018-10-24 | Outpatient (CLI) | payer MEDICARE, MEDICAID ==
[2015-06-28 10:58] VITALS: BMI 41.0
[~2018-10-24] MED LIST changes: -GABA-503 PO; +GABA-533 PO; -LOSA50TA74 PO; +LOSA50TA80 PO
== END ==
LOC: AMB 21:26
PROVIDERS: ATTEND Nurse Practitioner
DX: R04.0 Epistaxis (principal); R09.02 Hypoxemia
CPT/HCPCS: A0425; A0429

== ENCOUNTER → 2018-10-26 | Outpatient (CLI) | payer MEDICARE, MEDICAID ==
[2015-06-28 10:58] VITALS: BMI 41.0
== END ==
LOC: LAB 13:42
PROVIDERS: ATTEND Family Medicine
DX: E05.90 Thyrotoxicosis, unspecified without thyrotoxic crisis or storm (principal); E11.9 Type 2 diabetes mellitus without complications
CPT/HCPCS: 36415; 82040; 82247; 82310; 82374; 82435; 82465; 82565; 82947; 83036; 83718; 84075; 84132; 84155; 84295; 84439; 84443; 84450; 84460; 84478; 84481; 84520

== ENCOUNTER → 2018-11-04 | Outpatient (CLI) | payer MEDICARE, MEDICAID ==
[2015-06-28 10:58] VITALS: BMI 41.0
== END ==
LOC: AUD 10:00
PROVIDERS: ATTEND Otolaryngology
DX: H90.3 Sensorineural hearing loss, bilateral (principal)
CPT/HCPCS: 92557; 92570

== ENCOUNTER → 2018-11-15 | Outpatient (CLI) | payer MEDICARE, MEDICAID ==
[2015-06-28 10:58] VITALS: BMI 41.0
== END ==
LOC: RESP 02:22
PROVIDERS: ATTEND Internal Medicine Cardiovascular Disease
DX: Z02.9 Encounter for administrative examinations, unspecified (principal)
CPT/HCPCS: 93225

== ENCOUNTER → 2018-12-07 | Outpatient (CLI) | payer MEDICARE, MEDICAID ==
[2015-06-28 10:58] VITALS: BMI 41.0
[~2018-12-07] MED LIST changes: -DIPH0.5D12 IM; +DIPH0.5S2 IM
--- NOTE | 2018-12-12 20:08 | RT HOLTER TEST ---
FACILITY: [facility] PATIENT NAME: RAGHAVENDRA JACOBSNO : [id number] MR: [id number] V: [id number] EXAM DATE: ORDERING PHYSICIAN: NETTE ROLDAN TECHNOLOGIST: Leni-vimal date: 2018-12-07 11:11:00 Duration: 26:22:00 Test Indications: A-FIB Medications: DILTIAZEM [id number] QRS complexes 45 Ventricular ectopics which represent <1 % of total QRS comp. * Supraventricular ectopics which represent % of total QRS comp. * Paced QRS complexes which represent % of total QRS comp. VENTRICULAR ECTOPY 45 Isolated 0 Bigeminal Cycles 0 Couplets 0 Runs 0 Beats in Runs * Beats LONGEST at * BPM at :: -- * Beats FASTEST at * BPM at :: -- SUPRAVENTRICULAR ECTOPY * Isolated * Couplets * Runs * Beats in Runs * Beats LONGEST at * BPM at :: -- * Beats FASTEST at * BPM at :: -- HEART RATES 54 MIN at 23:53:26 2018-12-07 95 AVG 150 MAX at 14:16:22 2018-12-07 LONGEST RR 1.672 secs at 01:32:55 2018-12-08 S-T LEVELS Channel 1 -12.800 mm MIN at 11:11:00 2018-12-07 -12.800 mm MAX at 11:11:00 2018-12-07 Channel 2 -12.800 mm MIN at 11:11:00 2018-12-07 -12.800 mm MAX at 11:11:00 2018-12-07 Channel 3 -12.800 mm MIN at 11:11:00 2018-12-07 -12.800 mm MAX at 11:11:00 2018-12-07 Patient in atrial fibrillation throughout the study. Periods of RVR noted. Postitive halter monitor. Confirmed by Nilson Hill ([id number]) on 12/12/2018 8:08:27 PM Referred By: Overread By: Nilson Lance
== END ==
LOC: RESP 10:51
PROVIDERS: ATTEND Internal Medicine Cardiovascular Disease
DX: I48.1 Persistent atrial fibrillation (principal)
CPT/HCPCS: 93225

== ENCOUNTER → 2019-01-25 | Outpatient (CLI) | payer MEDICARE, MEDICAID ==
[2015-06-28 10:58] VITALS: BMI 41.0
[~2019-01-25] MED LIST changes: +NEED-931 MC
[2019-01-25 10:48] LABS: PLATELET COUNT, AUTOMATED 254 K/uL (150-450)
--- NOTE | 2019-01-25 11:23 | RADIOLOGY IMAGING REPORT ---
FACILITY: [facility] - [place] PATIENT NAME: Dahiana Ulloa : 1945 MR: [id number] V: [id number] EXAM DATE: ORDERING PHYSICIAN: ABUNDIO NY TECHNOLOGIST: Location: [facility] [place] Patient: Dahiana Ulloa : 1945 Visit/Account:[id number] Date of Sevice: 01/25/2019 CHEST PA LAT History: increased O2 need FINDINGS: Comparison studies: Comparison study 07/13/2017 Tubes and Lines: None. Lungs and pleura: There is increased perihilar interstitial opacities. No focal consolidation or p leural effusions. Mediastinum: Prominent hilar nodules probably represents engorged pulmonary arteries. Adenopathy ca nnot be excluded. Cardiac silhouette: Cardiac silhouette is enlarged unchanged Osseous structures: Unremarkable for age . IMPRESSION: Findings most suspicious for fluid overload, probable mild CHF. Interval development of mediastina l adenopathy less likely although not excluded. Report Dictated By: Chris Moctezuma MD at 01/25/2019 11:16 AM Report E-Signed By: Chris Moctezuma MD at 01/25/2019 11:19 AM WSN:[email or web address]
== END ==
LOC: LAB 10:23
PROVIDERS: ATTEND Family Medicine
DX: R68.89 Other general symptoms and signs (principal); E11.9 Type 2 diabetes mellitus without complications
CPT/HCPCS: 36415; 71046; 82310; 82374; 82435; 82565; 82947; 84132; 84295; 84520; 85025

== ENCOUNTER 2019-02-02 09:01 | Outpatient (RCR) | payer MEDICAID, MEDICARE ==
[2015-06-28 10:58] VITALS: Ht 167.6 cm; Wt 121.6 kg
[~2019-02-02] VITALS: Ht 167.6 cm; Wt 121.6 kg
--- NOTE | 2019-02-02 10:51 | Medical Nutrition Therapy ---
Nutrition Anthropometrics Height (Inches): 66 Weight (Pounds): 268 BMI: 43.3 Garcia Nutrition Score: Garcia Nutrition Risk Score: Dietary Referral Nutrition Risk Factors: Nutrition Risk Comment: Nutrition/Food History Breakfast: lender bagel, cream cheese, coffee with sweet creamer Lunch: skips Dinner: tortilla chips with cheese Snacks: blueberry bread, beer Nutritional Education Nutrition Education Topic: Diabetic Nutrition Learning Readiness: Not Ready Teaching Methods: Discussion, Handout Response to Teaching: Verbalize understanding Teaching Recipient: Patient Nutrition Counseling: Pt stated had talked to Dr regarding Keto diet and dr and recommended low CHO diet which is what she stated she came to session for. However upon talking with pt, she wasn't interested in low CHO diet . Pt may not be ready at this time to make any changes in eating habits d/t barriers from other health issues. Discussed action of CHO in body. Reviewed high CHO foods and provided her with meal plan of 30gm CHO/meal as a lower CHO diet. Reviewed plate method as alternative to counting CHO grams or portions. Encouraged pt to increase protien and decrease CHO. Pt states is on Lantus and Metformin. Pt states does not check her BG. Discussed Freestyle artur as an alternative to checking BG. Provided information on freestlye artur to discuss with PCP. Offered 360 test kit where pt checks BG before and after meals to assist with determining high/low and food impact. Pt not interested. Pt declined further classes or individual sessions. Nutrition Monitoring & Eval RD Patient Assessment Time: [address] Assessment Type: RD Education Nutritional Comment: Provided 45 minute diabetes education focusing on nutrtion and BG testing. Copies To Copies to: ABUNDIO NY MD ; QUE FRANK 6, 2019 10:51
[2019-02-13] MEDS ORDERED: GABA-547 PO (11:51)
[2019-02-22] MEDS ORDERED: LOSA50TA80 PO (12:33)
== END 2019-03-09 ==
LOC: DIET 09:01
PROVIDERS: ATTEND Family Medicine
DX: Z71.3 Dietary counseling and surveillance (principal); E11.9 Type 2 diabetes mellitus without complications
CPT/HCPCS: G0108

== ENCOUNTER → 2019-02-22 | Outpatient (CLI) | payer MEDICARE ==
[2015-06-28 10:58] VITALS: BMI 41.0
[~2019-02-22] MED LIST changes: +GABA-547 PO
[2019-02-22 13:12] LABS: PLATELET COUNT, AUTOMATED 246 K/uL (150-450)
== END ==
LOC: LAB 12:47
PROVIDERS: ATTEND Family Medicine
DX: I10 Essential (primary) hypertension (principal)
CPT/HCPCS: 36415; 82310; 82374; 82435; 82565; 82947; 84132; 84295; 84520; 85025

== ENCOUNTER → 2019-02-28 | Outpatient (CLI) | payer MEDICARE ==
[2015-06-28 10:58] VITALS: BMI 41.0
[~2019-02-28] MED LIST changes: +IOPAMIDOL 76% 100 ML INFUS BTL 100 ML ONE
--- NOTE | 2019-02-28 15:23 | RADIOLOGY IMAGING REPORT ---
FACILITY: [facility] [place] PATIENT NAME: Dahiana Ulloa : 1945 MR: [id number] V: [id number] EXAM DATE: ORDERING PHYSICIAN: ABUNDIO NY TECHNOLOGIST: [place] [facility] [place]: Dahiana Ulloa : 1945 Visit/Account:[id number] Date of Sevice: 02/28/2019 CT CHEST (CONTRAST) History: increased oxygen demand,SOB, Adenopathy TECHNIQUE: Contiguous axial images were performed through the chest to the level of the adrenal gla nds following the administration of IV contrast. Coronal and sagittal reformatting was also perform ed.Dose Lowering Technique One of the following dose optimization techniques was utilized in the performance of this exam: Autom ated exposure control; adjustment of the mA and/or kV according to the patient's size; or use of an i terative reconstruction technique. Specific details can be referenced in the facility's radiology C T exam operational policy. Contrast: 75 mL Isovue-370 COMPARISON STUDIES: CT abdomen pelvis June 27, 2015. Lungs / Pleura: There is coarse linear stranding in the inferior right middle lobe which was presen t previously although appears slightly more prominent and may represent progressive scarring and/or a telectasis. Small amount linear stranding in the left pulmonary apex. Also consistent with scarring versus atelectasis. Period there is a small amount scarring in the inferior lingula. There is a sandoval btle groundglass pattern throughout most of the lungs which may represent mild interstitial edema or atelectasis.. There is a 5 mm calcified granuloma in the right upper lobe Mediastinum/nodes: No pathologically enlarged hilar mediastinal lymph nodes are identified.. Instan tly noted are calcified pretracheal and right hilar lymph nodes Heart and vessels: There are at least moderate coronary artery calcifications present. Moderate calcifications identified and thoracic aorta and branch vessels Musculoskeletal / Body wall: Incompletely imaged is a large heterogeneous nodule projecting from th e inferior aspect of the left lobe the thyroid gland measuring approximately 3.6 cm in AP dimension Upper abdomen: Calcified granulomas in the spleen Cholelithiasis Incompletely imaged is perinephric stranding along superior poles of both kidneys IMPRESSION: Coarse linear stranding the right middle lobe inferiorly has increased slightly when compared the enzo or study and may represent progressive scarring and/or atelectasis Similar changes are identified in the inferior lingula although appears stable There is subtle groundglass pattern throughout the lungs which may represent mild interstitial pulmon donte edema or atelectasis 3.6 cm heterogeneous left thyroid nodule for which thyroid ultrasound is recommended Cholelithiasis Calcified right hilar, pretracheal lymph nodes in addition to calcified granulomas in the spleen and in the right upper lobe consistent with an prior granulomatous process Report Dictated By: Rosalia Stoddard MD at 02/28/2019 2:58 PM Report E-Signed By: Rosalia Stoddard MD at 02/28/2019 3:17 PM WSN:[email or web address]
== END ==
LOC: CT 00:32
PROVIDERS: ATTEND Family Medicine
DX: R91.1 Solitary pulmonary nodule (principal); R91.8 Other nonspecific abnormal finding of lung field; K80.20 Calculus of gallbladder without cholecystitis without obstruction; I07.1 Rheumatic tricuspid insufficiency; I51.7 Cardiomegaly
CPT/HCPCS: 71260; 93306; Q9967